=== PATIENT | male | born 1990 | race Two or more races ===

== ENCOUNTER 2019-08-03 01:51 | Emergency (ER) | payer SELFPAY ==
[~2019-08-03] VITALS: Ht 165.1 cm; Wt 77.1 kg
--- NOTE | 2019-08-03 02:12 | NUR ---
GAEL FROM THE REDLINE. AAOX4. AAOX4. NO RESP DISTRESS NOTED. BREATHING EVEN AND UNLABORED. AMBULATORY. C/O CHEST PAIN X 2 DAYS. PT REPORTS PAIN ON MID STERNAL AREA RADIATING TO THE BACK. 8/10 FEELING OF TIGHTNESS. PT ALSO REPORTS THAT HE FEELS HE IS DEHYDRATED. PT HOOKED ON MONITOR. MD AT BEDSIDE. EKG DONE BY EMT. AWAITING FURTHER ORDERS.
[2019-08-03] MEDS ORDERED: IV NS 0.9% 1,000 ML BAG IV ONE (02:30)
--- NOTE | 2019-08-03 03:18 | NUR ---
Patient discharged to home in stable condition. Written and verbal after care instructions given. Patient verbalizes understanding of instruction.IV removed. Catheter intact and site benign. Pressure and 4x4 applied to site. No bleeding noted. Pt ambulatory with a steady gait
[2019-08-03 03:20] VITALS: BP 148/94
== END 2019-08-03 03:21 | disposition home or self-care (01) ==
LOC: ER 01:53
DX: F10.129 Alcohol abuse with intoxication, unspecified (principal); E86.0 Dehydration; Y90.9 Presence of alcohol in blood, level not specified
CPT/HCPCS: 71045; 93005; 96360; 99283; J7030